=== PATIENT | male | born 1965 | race Caucasian/White ===

== ENCOUNTER 2018-11-20 10:17 | Observation (INO) | payer BC, SELFPAY ==
[~2018-11-20 10:17] MED LIST: Iopamidol 370 76% 100 ML VIAL ONE
[2018-11-20] MEDS ORDERED: Heparin 1,000 UNITS/ML VIAL ONE (10:47)
--- NOTE | 2018-11-20 10:49 | RAD ---
RADIOGRAPH CHEST 1 VIEW: HISTORY: 53-year-old male with chest pain. FINDINGS: There is no air space density, pulmonary edema, or pneumothorax. The lateral costophrenic angles are sharp. IMPRESSION: No acute pulmonary findings. jn [] POS: [facility]
[2018-11-20] MEDS ORDERED: Ketorolac Tromethamine 30 MG/ML VIAL ONE ×2 (10:55→18:22)
[2018-11-20] MEDS ORDERED: Lidocaine 1% (PF) 30 ML VIAL ONE (10:57)
[2018-11-20 11:01] LABS: #Basophils 0.1 thou/uL (0.0-0.2); #Eosinphils 0.1 thou/uL (0.0-0.7); #Lymphocytes 2.9 thou/uL (1.20-3.40); #Monocytes 1.1 thou/uL (0.11-0.59); #Neutrophils 5.2 thou/uL (1.40-6.50); %Eosinophils 0.9 % (0.0-10.0); %Lymphocytes 30.5 % (21.0-51.0); %Monocytes 11.9 % (0.0-10.0); %Neutrophils 55.6 % (42.0-75.0); Hemoglobin 15.2 g/dL (14.0-18.0); Mean Corpuscular HGB CONC 32.8 g/dL (32.0-36.0); Mean Corpuscular Hemoglobin 30.1 pg (27.0-31.0); Mean Corpuscular Volume 91.5 fL (78.0-98.0); Mean Platelet Volume 6.7 fL (7.4-10.4); Platelet Count 240 thou/uL (130-400); RBC Distribution Width 11.7 % (11.5-14.5); Red Blood Cell (RBC) Count 5.05 mill/uL (4.70-6.10); White Blood Cell (WBC) Count 9.4 thou/uL (4.8-10.8)
--- NOTE | 2018-11-20 11:06 | HP ---
HISTORY OF PRESENT ILLNESS: This is a 53-year-old white male with history of reflux, who presents with chest pain. The patient was doing well until yesterday at 9:00 a.m. In the morning, he developed acute onset of chest pain. He has his girlfriend works for [employer] and she recommended that he go to the hospital. However, the patient has declined. He called the office this morning and was told to immediately come to the office. An EKG was done, which revealed ST-segment elevations inferiorly and anteriorly. He was immediately given aspirin 325 and placed on oxygen. Ambulance has been called. The patient is still reluctant to go to the hospital and has finally agreed. His only medications include Dexilant for a hiatal hernia and reflux. PAST MEDICAL HISTORY: Hiatal hernia and esophageal stricture. ALLERGIES: NONE. PAST SURGICAL HISTORY: Colonoscopy and EGD in July 2014. FAMILY HISTORY: Paternal grandfather with heart disease, maternal with heart disease, father with CVA, and maternal grandfather with colon cancer. SOCIAL HISTORY: He is . He does have 3 kids, 2 daughters and 1 son. He works for [employer]. However, he is presently filing for bankruptcy. 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 REVIEW OF SYSTEMS: As above. PHYSICAL EXAMINATION: VITAL SIGNS: Weight 226. Blood pressure 120/74 and heart rate 76. GENERAL: The patient does have substernal chest pain. HEENT: Clear. HEART: Regular rate and rhythm. LUNGS: Clear. ABDOMEN: Soft and nontender. EXTREMITIES: No edema. ASSESSMENT: 1. Chest pain. 2. ST-segment elevation myocardial infarction. PLAN: EMS is being called and is on its way. Aspirin has been given. The patient is to be started on oxygen. Cardiology referral will be taken place at the ER. The ER has also been notified. Job ID: [id number]
[2018-11-20 11:12] LABS: ALT (SGPT) 20 U/L (8-55); AST (SGOT) 19 U/L (5-34); Albumin 4.3 g/dL (3.5-5.0); Alkaline Phosphatase 70 U/L (40-150); Anion Gap 13 mmol/L (10-20); BUN (Urea Nitrogen) 11 mg/dL (8.4-25.7); Bilirubin, Total 1.1 mg/dL (0.2-1.2); CK (CPK) 174 U/L (30-200); Calc. Creatinine Clearance 0 mL/min (70-130); Calcium 9.4 mg/dL (7.8-10.44); Carbon Dioxide 24 mmol/L (22-29); Chloride 104 mmol/L (98-107); Estimated GFR-MDRD 80; Globulin 2.9 g/dL (2.4-3.5); Glucose 100 mg/dL (70-105); Protein, Total 7.2 g/dL (6.0-8.3); Sodium 137 mmol/L (136-145)
[2018-11-20] MEDS ORDERED: Midazolam HCl 2 mg/2 ml Vial ONE (11:17)
[2018-11-20] MEDS ORDERED: Fentanyl 100 MCG/2 ML VIAL ONE (11:18)
[2018-11-20] MEDS ORDERED: Atropine Sulfate 1 mg/10 ml Syringe ONE (11:32)
[2018-11-20] MEDS ORDERED: Sodium Chloride 0.9% 200 ML IV PRN (12:00)
[2018-11-20] MEDS ORDERED: Sodium Chloride 0.9% 1,000 ML IV SCH (12:00)
[2018-11-20] MEDS ORDERED: Nitroglycerin 0.4 MG TAB (25 Tab Bottle) SL PRN (12:00)
[2018-11-20] MEDS ORDERED: Acetaminophen/Codeine 30-300mg Tablet PO PRN ×2 (12:00)
[2018-11-20] MEDS ORDERED: Acetaminophen 325 MG TAB PO PRN (12:01)
[2018-11-20] MEDS ORDERED: Colchicine 0.6 MG TAB PO SCH (12:45)
--- NOTE | 2018-11-20 13:18 | HP ---
REASON FOR ADMISSION: Ongoing chest pain with abnormal EKG. HISTORY OF PRESENT ILLNESS: Mr. Zayas is a 53-year-old gentleman. He went to his primary care physician today complaining of chest pain. EKG was abnormal and an ambulance was called. He was given nitroglycerin. He thinks the pain may have gotten better with nitroglycerin. The followup EKG looks slightly better after the nitroglycerin. I was called at that point. The patient's pain was central, substernal, and did hurt worse with a deep breath, did hurt worse when he laid supine. It was going on really almost all the night, sometimes it get better, sometimes worse. PAST MEDICAL HISTORY: Negative for any cardiac problems. His only medication was a medicine for acid reflux. He is active. He runs on a regular basis. ALLERGIES: NONE KNOWN. SOCIAL HISTORY: No alcohol or tobacco. REVIEW OF SYSTEMS: CONSTITUTIONAL: No significant weight gain or loss. VISION: No changes. HEARING: No changes. PULMONARY: No cough or wheezing. GASTROINTESTINAL: No nausea, vomiting, or diarrhea. SKIN: No rashes. NEUROLOGIC: No unilateral weakness or numbness. PSYCHIATRIC: No unusual depression or anxiety. PHYSICAL EXAMINATION: GENERAL: A middle-aged gentleman, resting comfortably. He is having ongoing chest pain. VITAL SIGNS: Blood pressure 130/70, pulse 70, sinus on the monitor. NECK: Veins normal. Carotid normal upstrokes. No bruits. LUNGS: Clear. CARDIAC: Normal S1, normal S2. There did sound like there is a rub along the left mid sternal border, 2/6. No diastolic murmur. ABDOMEN: Soft and nontender. EXTREMITIES: Warm and dry. No clubbing, cyanosis, or edema. Good peripheral pulses. PSYCHIATRIC: Mood and affect normal. The dorsalis pedis and posterior tibial pulses are strong bilaterally. IMAGING STUDIES: EKG initially did show sinus rhythm, some ST elevation in lead 2, 3 as well as V2, V3, V4, V5. It was not particularly concave up. After nitroglycerin, the EKG did seem to improve somewhat, but the changes persisted. Another EKG slightly after that looked much more normal. EKG here did reveal some concave up ST elevation in lead II, in aVL, and some ST elevation across anterior leads. ASSESSMENT: Chest pain, persistent with some variation in the EKG. Clinically, that this is most likely pericarditis, but it was impossible to be certain this was not a myocardial infarction. Certainly, that can be ST elevation in the anterior leads and inferior leads and the LAD is a "wrap-around" the apex. Statistically, I thought this is more likely pericarditis, but in view of the ongoing pain, it was decided the best thing is to go to the cardiac catheterization lab. Also, the patient has had a myocardial infarction and has had prolonged pain. He can have pericarditis later into that episode. Therefore, we proceeded to cardiac catheterization. Discussed risks of stroke, heart attack, iodine allergy, loss of blood supply to leg or kidney, stent thrombosis, stent restenosis were all discussed. The patient understood and wished to proceed. Job ID: [id number]
[2018-11-20] MEDS ORDERED: Acetaminophen 325 MG TAB ONE (14:02)
[2018-11-20] MEDS ORDERED: Acetaminophen 500 MG TAB ONE (14:04)
[2018-11-20] MEDS ORDERED: Ketorolac Tromethamine 30 MG/ML VIAL IVP SCH (18:00)
[2018-11-20] MEDS ORDERED: Sodium Chloride 0.9% 10 ML ONE (18:10)
[2018-11-20] MEDS ORDERED: Sodium Chloride 0.9% 20 ML ONE (18:25)
[2018-11-20 20:56] LABS: Troponin I Less than 0.010 ng/mL (< 0.028)
[2018-11-20] MEDS: Colchicine 0.6 MG TAB PO SCH (22:17)
[2018-11-20] MEDS: Famotidine 20 MG TAB PO SCH (22:19)
[2018-11-21] MEDS ORDERED: Naproxen 500 MG TAB PO SCH ×2 (06:00)
[2018-11-21 06:38] LABS: Troponin I 0.015 ng/mL (< 0.028)
[2018-11-21 08:31] VITALS: BP 119/76; TEMP 98.2
[2018-11-21] MEDS: Colchicine 0.6 MG TAB PO SCH (08:49)
[2018-11-21] MEDS: Famotidine 20 MG TAB PO SCH (08:49)
--- NOTE | 2018-11-21 10:03 | PRG ---
DATE OF SERVICE: 11/21/2018 SUBJECTIVE: The patient is feeling much better this morning. Minimal chest discomfort this morning. OBJECTIVE: VITAL SIGNS: Temperature 98, pulse 61, respirations 16, pulse ox 95, and blood pressure 121/68. HEART: Regular rate and rhythm. LUNGS: Clear. ABDOMEN: Soft, nontender. EXTREMITIES: No edema. LABORATORY DATA: None. ASSESSMENT: 1. Acute pericarditis, probably viral in origin. 2. Chest pain, resolving. PLAN: 1. Naprosyn 500 b.i.d. plus or minus colchicine daily. 2. Follow up in 1 week. 3. Probable discharge today by Dr. Stafford. Job ID: [id number]
[2018-11-21] MEDS ORDERED: Ibuprofen 800 MG TAB PO SCH (12:00)
--- NOTE | 2018-11-21 12:57 | DIS ---
DATE OF ADMISSION: 11/20/2018 DATE OF DISCHARGE: 11/21/2018 FINAL DIAGNOSES: 1. Pericarditis. 2. Normal coronary arteries. DISCHARGE MEDICATIONS: Medications at the time of discharge: 1. Colchicine 0.6 mg twice a day for 3 months. 2. Ibuprofen 600 mg 3 times a day for 2 weeks. FOLLOWUP: Follow up in office in 2 weeks. PROGNOSIS: Appears favorable. HOSPITAL COURSE: The patient came to the emergency room yesterday having ongoing chest pain with ST elevation. The EKG changes seemed to be somewhat variable and seemed to be improved with nitrates; therefore, it was decided to take him to catheterization lab on an urgent basis to see if he had obstructive coronary artery disease. The coronary arteries were normal. The velocity was reduced, but the size of the vessels was very large; therefore, the flow appeared normal. There was no obstructive disease. No evidence of any atherosclerosis. The femoral artery was also large and normal. PERTINENT LABORATORY DATA: The hemoglobin is 15.2. The creatinine is 0.98. Troponin 0.015. EKG changes were compatible with pericarditis. Echo normal EF, no significant pericardial effusion. Valves normal. The patient is to be treated with colchicine 0.6 mg twice a day for 3 months and ibuprofen 600 mg 3 times a day for 2 weeks. To be seen in the office in 2 weeks. Discussed what typical pericarditis feels like. Job ID: [id number] MTDD
--- NOTE | 2018-11-21 16:15 | EKG ---
Test Reason : Blood Pressure : / mmHG Vent. Rate : 048 BPM Atrial Rate : 048 BPM P-R Int : 154 ms QRS Dur : 100 ms QT Int : 420 ms P-R-T Axes : 049 023 010 degrees QTc Int : 375 ms Marked sinus bradycardia Incomplete right bundle branch block Early repolarization Abnormal ECG Confirmed by EUN CABA ([id number]) on 11/21/2018 4:15:23 PM Referred By: SHEREE Confirmed By:EUN CABA
== END 2018-11-21 12:17 | disposition home or self-care (01) ==
LOC: ERS 10:17 → CCL 11:56 → 2SW 18:56
PROVIDERS: ADMIT Internal Medicine Cardiovascular Disease; ATTEND Internal Medicine Cardiovascular Disease
PROC: 4A023N7 Measurement of Cardiac Sampling and Pressure, Left Heart, Percutaneous Approach (ICD-10-PCS; principal; 2018-11-21)
PROC: B2001ZZ Plain Radiography of Single Coronary Artery using Low Osmolar Contrast (ICD-10-PCS; 2018-11-21)
DX: I31.9 Disease of pericardium, unspecified (principal); K21.9 Gastro-esophageal reflux disease without esophagitis; Z79.899 Other long term (current) drug therapy
CPT/HCPCS: 36415; 71045; 76942; 80053; 82550; 84443; 84484; 85025; 85347; 93005; 93010; 93306; 93458; 93798; 96374; 96375; 99152; C1769; G0378; J0461; J1644; J1885; J2001; J2250; J3010; Q9967